=== PATIENT | female | born 1955 | race Caucasian/White ===

== ENCOUNTER 2016-08-29 17:43 | Emergency (ER) | payer OTHER ==
[~2016-08-29] VITALS: Ht 167.6 cm; Wt 71.6 kg
[~2016-08-29 17:43] MED LIST: CEPH-443 PO; HYDR-3498 PO; IBUP-1542 PO; NAPR-260 PO
[2016-08-29 18:01] VITALS: Ht 167.6 cm; Wt 71.6 kg
[2016-08-29] MEDS ORDERED: PRED20TA PO (19:52)
[2016-08-29] MEDS ORDERED: BEN25 PO (19:52)
--- NOTE | 2016-08-29 19:56 | ERD ---
ER Documentation Chief Complaint Date/Time DATE: 08/29/16 TIME: 19:54 Chief Complaint RASH HPI This is a 61-year-old female who complains of itchy rash to her arms for 2 weeks. Rash tends to come and go. There is no known indicator what is causing the rash she says she is not eating any berries nuts or shellfish. No swelling of the face lips or tongue. No wheezing or shortness of breath ROS All systems reviewed and are negative except as per history of present illness. Medications Home Meds Active Scripts Diphenhydramine Hcl* (Benadryl*) 25 Mg Cap, 25 MG PO Q6 Y for ITCHING/RASH, #30 TAB Prov:KIMKKOSJOSESTOLOS A. DO 08/29/16 Prednisone* (Prednisone*) 20 Mg Tab, 60 MG PO DAILY for 5 Days, TAB Prov:LEKKOS,APOSTOLOS A. DO 08/29/16 Ibuprofen* (Motrin*) 600 Mg Tab, 600 MG PO Q8, #30 TAB 0 Refills Prov:JOSE CARLOS ELLISON PA-C 10/16/15 Cephalexin* (Keflex*) 500 Mg Capsule, 500 MG PO TID, #21 CAP 0 Refills Prov:JOSE CARLOS ELLISON PA-C 10/16/15 Naproxen* (Naprosyn*) 500 Mg Tablet, 500 MG PO BID Y for PAIN AND/OR INFLAMMATION, #30 TAB Prov:MILAGROS GUDINONA C 07/14/15 Hydrocodone Bit-Acetaminophen* (Senath*) 5-325 Mg Tab, 1 TAB PO Q6 Y for PAIN, # 20 TAB Prov:CHELITA GUDINO C 07/14/15 Allergies Allergies: Coded Allergies: No Known Allergy (Unverified , 07/14/15) PMhx/Soc History of Surgery: No Anesthesia Reaction: No Hx Neurological Disorder: No Hx Respiratory Disorders: No Hx Cardiac Disorders: Yes (HIGH CHOL AND HTN) Hx Psychiatric Problems: No Hx Miscellaneous Medical Probl: No Hx Alcohol Use: No Hx Substance Use: No Hx Tobacco Use: Yes Smoking Status: Current every day smoker FmHx Family History: No coronary disease Physical Exam Vitals Vital Signs Date Time Temp Pulse Resp B/P Pulse Ox O2 Delivery O2 Flow Rate FiO2 08/29/16 18:01 98.3 100 20 141/73 98 Physical Exam Const: Well-developed, well-nourished Head: Atraumatic, normocephalic Eyes: Normal Conjunctiva, PERRLA, EOMI, normal sclera, no nystagmus ENT: Normal External Ears, Nose and Mouth, moist mucus membranes. Neck: Full range of motion. No meningismus, no lymphadenopathy. Resp: Clear to auscultation bilaterally, no wheezing, rhonchi, rales Cardio: Regular rate and rhythm, no murmurs, S1 S2 present Abd: Soft, non tender x 4, non distended. Normal bowel sounds, no guarding or rebound, no pulsitile abdominal masses or bruits Skin: Diffuse hives to the upper extremities Back: No midline or flank tenderness Ext: No cyanosis, or edema, FROM x 4, normal inspection, neurovascularly intact x 4 Neur: Awake and alert, STR 5/5 x 4, sensation intact x 4, no focal findings, cerebellum intact Psych: Normal Mood and Affect Results 24 hrs Current Medications Medications (Trade) Dose Ordered Sig/Martha Route PRN Reason Start Time Stop Time Status Last Admin Dose Admin Methylprednisolone Sodium Succinate (Solu-Medrol) 125 mg ONCE ONCE IM 08/29/16 20:00 08/29/16 20:01 Procedures/MDM Discussed with patient to go hypoallergenic and fragrance free and to avoid common food allergens We will give Solu-Medrol IM at her request here Departure Diagnosis: Primary Impression: Allergic reaction Encounter type: initial encounter Qualified Code: T78.40XA - Allergic reaction, initial encounter Condition: Stable Patient Instructions: Allergic Reaction, Drug RAOUL NICHOLS DO Aug 29, 2016 19:56
[2016-08-29] MEDS ORDERED: METHYLPREDNISOLONE 125 MG INJ IM ONE (20:00)
== END 2016-08-29 20:28 | disposition home or self-care (01) ==
LOC: FTE 17:43
DX: R21 Rash and other nonspecific skin eruption (principal); F17.210 Nicotine dependence, cigarettes, uncomplicated; I10 Essential (primary) hypertension
CPT/HCPCS: 96372; J2930; Z7502

== ENCOUNTER 2018-03-21 18:18 | Emergency (ER) | END 2018-03-21 22:04 | disposition home or self-care (01) ==